=== PATIENT | female | born 1985 | race Caucasian/White ===

== ENCOUNTER 2017-10-20 23:29 | Emergency (ER) | payer BC, OTHER ==
[~2017-10-20] VITALS: Ht 157.5 cm; Wt 53.1 kg
[2017-10-20 23:50] VITALS: BP 128/74
[2017-10-21] MEDS ORDERED: Lidocaine 1% Plain 30 ml INJ ONE
[2017-10-21] MEDS ORDERED: Bacitracin Oint UD TOPIC ONE (01:15)
[2017-10-21] MEDS ORDERED: ZITHROMAX250 MG ORAL (01:18)
[2017-10-21] MEDS ORDERED: IBUPROFEN600 MG ORAL (01:18)
[2017-10-21] MEDS ORDERED: NORCO 5-325 TA1 EACH ORAL (01:18)
[2017-10-21 01:49] VITALS: BP 1/1
--- NOTE | 2017-10-21 05:12 | Emergency Room Report ---
History of Present Illness General Chief Complaint: Laceration Source: Patient Present Illness HPI Patient 32-year-old female who presented after a fall. The patient pain to her left middle finger. The injury occurred just prior to arrival. The patient stated that she had recently had her nails done. She was noted to have left middle finger pain. The patient denies other locations of pain. The patient cannot recall how she fell. She denied loss of consciousness or headache. She denied neck or back pain. Allergies: Coded Allergies: PENICILLINS (Verified Allergy, Unknown, 10/20/17) Patient History Past Medical History: see triage record Last Menstrual Period: 2016 Now: No Reviewed Nursing Documentation: PMH: Agreed, PSxH: Agreed Nursing Documentation-PMH Past Medical History: No Stated History Review of Systems All Other Systems: negative except mentioned in HPI Physical Exam Vital Signs Date Time Temp Pulse Resp B/P (MAP) Pulse Ox O2 Delivery O2 Flow Rate FiO2 10/20/17 23:43 98.1 89 16 130/75 99 Room Air General Appearance: well appearing, no apparent distress, alert, GCS 15, non- toxic Head: normocephalic, atraumatic ENT: hearing grossly normal, normal voice Neck: full range of motion, supple Respiratory: lungs clear, normal breath sounds, no respiratory distress, speaking full sentences Cardiovascular #1: normal peripheral pulses, regular rate, rhythm, no edema Gastrointestinal: normal inspection Neurologic: normal inspection, alert, oriented x3, consulting solution director III-XII nml as tested, normal gait Psychiatric: mood/affect normal Skin: no rash, laceration - laceration to left middle finger, nail avulsion Procedures Laceration/Wound Repair Laceration/Wound Repair : Consent: Emergent Wound Location: upper extremity Wound's Depth, Shape: irregular, flap Wound Length (cm): 1 Wound Explored: clean Irrigated w/ Saline (ccs): 80 Betadine Prep?: Yes Anesthesia: 1% Lidocaine Volume Anesthetic (ccs): 3 Wound Debrided: minimal Wound Repaired With: sutures Suture Size/Type: 6:0 Number of Sutures: 5 Type of Splint Applied: metal Patient Tolerated: Well Complications: None Medical Decision Making Diagnostic Impression: Primary Impression: Open fracture Additional Impression: Laceration ER Course Patient presented for finger injury. Differential diagnosis included wasn't limited to fracture, laceration, foreign body, nail avulsion among others. The patient was having up-to-date tetanus vaccine. A digital block was performed. The patient's finger was irrigated and sutured with good approximation. The patient was advised to have wound rechecked with a hand specialist. The patient states that she has a physician that she can followup with. The patient given prescription for azithromycin for fracture as well as pain medication. The patient is advised to follow up with primary care doctor in 1- 2 days. Patient is advised to return if any worsening condition or if any changes in status that are concerning. This report is dictated with [employer] committee member software which may occasionally lead to discrepancies related to use of this software. Last Vital Signs Date Time Temp Pulse Resp B/P (MAP) Pulse Ox O2 Delivery O2 Flow Rate FiO2 10/21/17 01:49 10/1410/20/17 23:50 98.2 78 17 98 Room Air Status: improved Disposition: HOME, SELF-CARE Condition: Stable Scripts Ibuprofen* (MOTRIN*) 600 Mg Tablet 600 MG ORAL Q8H Y for For Pain, #30 TAB 0 Refills Prov: Leland Beal 10/21/17 Hydrocodone Bit/Acetaminophen 5-325* (NORCO 5-325*) 1 Each Tablet 1 TAB ORAL Q6H Y for For Pain, #20 TAB 0 Refills Prov: Leland Beal 10/21/17 Azithromycin* (ZITHROMAX*) 250 Mg Tablet 250 MG ORAL DAILY, #6 TAB 0 Refills Take two tables once daily for 1 day, then one tablet once daily for 4 days. Prov: Leland Beal 10/21/17 Patient Instructions: Laceration Care, Adult, Finger Fracture, [id number], Nail Avulsion Additional Instructions: follow up with hand surgeon for wound check and reevaluation Leland Beal Oct 21, 2017 05:11
--- NOTE | 2017-10-21 21:47 | Diagnostic Imaging Report ---
Indication: Pain Comparison: None Findings: There is a comminuted fracture of the distal third phalange of the left hand. Soft tissue defect maceration noted. IMPRESSION: Acute injury as described above
== END 2017-10-21 01:45 | disposition home or self-care (01) ==
LOC: EMR 23:50
DX: S62.633B Displaced fracture of distal phalanx of left middle finger, initial encounter for open fracture (principal); W19.XXXA Unspecified fall, initial encounter; S61.313A Laceration without foreign body of left middle finger with damage to nail, initial encounter; Y92.9 Unspecified place or not applicable; Z88.0 Allergy status to penicillin
CPT/HCPCS: 12001; 73140; 99283; J2001